=== PATIENT | female | born 1970 | race African-American/Black ===

== ENCOUNTER 2022-04-18 12:39 | Observation (INO) ==
[2022-04-18 13:22] LABS: Protein,Urine Negative (Negative); Urine Appearance Clear (Clear); Urine Color Yellow (Yellow); Urine Specific Gravity 1.015 (1.001-1.035)
[2022-04-18 13:23] LABS: Bilirubin,Urine Negative (Negative); Blood, Urine Trace mg/dL (Negative); Glucose,Urine (UA) Negative (Negative); Ketones,Urine Negative (Negative); Nitrite,Urine Negative (Negative); Urine Urobilinogen 0.2 eU/dL (<2.0)
[2022-04-18 13:27] LABS: Bacteria,Urine Occasional /HPF (Few); Mucus,Urine Occasional /LPF (Occasional); RBC,Urine 19 /HPF (0-4); Squamous Epithelial Cell,Urine Few /HPF (0-10)
[2022-04-18] MEDS ORDERED: MORPHINE 2 MG/1 ML SYRINGE IV STA (13:34)
[2022-04-18] MEDS ORDERED: ONDANSETRON 4 MG/2 ML VIAL IV STA (13:34)
[2022-04-18] MEDS ORDERED: SODIUM CHLORIDE 0.9% 1,000 ML IV STA (13:35)
[2022-04-18 13:42] LABS: Basophils % 0.4 % (0.0-0.8); Eosinophils % 0.4 % (0.00-10.9); Hematocrit 37.9 VOL% (35.7-47.0); Hemoglobin 12.5 GM/DL (12.0-16.0); Immature Granulocytes % 0.4 %; Immature Granulocytes Absolute 0.04 #; Lymphocytes # 3.6 10*3/uL (1.4-4.0); Lymphocytes % 37.4 % (21.3-54.2); Mean Corpuscular Volume 90.5 FL (87-102); Mean Platelet Volume 11.1 FL (9.6-12.0); Monocytes # 0.5 10*3/uL (0.11-0.8); Monocytes % 5.1 % (1.7-12.7); Neutrophils % 56.3 % (38.7-73.9); Platelet Count 288 T/CUMM (130-400); Red Blood Count 4.19 MC/CUMM (3.8-5.5); Red Cell Distribution Width 14.8 % (9.3-17.3); White Blood Count 9.5 T/CUMM (4-12)
[2022-04-18 14:01] LABS: Albumin 3.6 G/DL (3.4-5.0); Bilirubin,Total 0.6 MG/DL (0.20-1.00); Calcium 9.2 MG/DL (8.5-10.1); Osmolality,Calculated 273.7 MOS/KG (273-304); Total Protein 7.4 G/DL (6.4-8.2)
[2022-04-18] MEDS ORDERED: HYDROmorphone 1 MG/1 ML SYRINGE IV STA (15:49)
[2022-04-18] MEDS ORDERED: KETOROLAC 15 MG/1 ML VIAL IV PRN (15:53)
[2022-04-18] MEDS ORDERED: BISACODYL 5 MG TABLET PO PRN (15:53)
[2022-04-18] MEDS ORDERED: ONDANSETRON 4 MG/2 ML VIAL IV PRN (15:53)
[2022-04-18] MEDS ORDERED: ACETAMINOPHEN 325 MG TABLET PO PRN (15:53)
[2022-04-18] MEDS ORDERED: HYDROmorphone 1 MG/1 ML SYRINGE IV PRN ×2 (15:53)
[2022-04-18] MEDS: PIPERACILLIN/TAZOBACTAM 3,375 MG in SODIUM CHLORIDE 0.9% 100 ML IV SCH ×2 (17:28→23:24)
[2022-04-18] MEDS: LACTATED RINGERS 1,000 ML IV SCH (21:58)
[2022-04-19] MEDS: LACTATED RINGERS 1,000 ML IV SCH (04:34)
[2022-04-19] MEDS ORDERED: PANTOPRAZOLE 40 MG TABLET PO SCH (09:00)
[2022-04-19] MEDS: CEFUROXIME 500 MG TABLET PO SCH ×2 (09:53→18:26)
[2022-04-19] MEDS ORDERED: ENOXAPARIN 40 MG/0.4 ML SYRINGE SUBCUT SCH (10:00)
[2022-04-19 17:30] VITALS: BP 123/57
== END 2022-04-19 18:20 | disposition home or self-care (01) ==
LOC: N.ED 12:39 → N.EDINP 12:39 → N.3E 20:24
PROVIDERS: ADMIT Surgery; ATTEND Surgery